=== PATIENT | female | born 1960 | race African-American/Black ===

== ENCOUNTER → 2018-01-15 | Outpatient (CLI) | payer OTHER ==
[~2018-01-15] MED LIST: GLUCOPHAGE XR,500 MG PO
== END | disposition home or self-care (01) ==
LOC: NUC 07:24
PROC: DWY5GYZ Isotope Administration to Whole Body using Other Isotope (ICD-10-PCS; principal; 2018-01-15)
DX: E05.20 Thyrotoxicosis with toxic multinodular goiter without thyrotoxic crisis or storm (principal)
CPT/HCPCS: 78014; 78999; A9516

== ENCOUNTER → 2018-02-16 | Outpatient (CLI) | payer OTHER | END | disposition home or self-care (01) | LOC: RES 02-07 09:00 | DX: R94.2 Abnormal results of pulmonary function studies (principal); R06.2 Wheezing | CPT/HCPCS: 94060; 94726; 94729 ==